=== PATIENT | female | born 1935 | race Caucasian/White ===

== ENCOUNTER 2022-05-29 11:22 | Inpatient (IN) | payer OTHER ==
[~2022-05-29] VITALS: Ht 165.1 cm; Wt 75.8 kg
[2022-05-29] MEDS ORDERED: SODIUM CHLORIDE 0.9% 1,000 ML IV ONE (12:00)
[2022-05-29] MEDS ORDERED: cefTRIAXone 1GM/50ML D5W 50 ML IV ONE (12:00)
[2022-05-29 12:50] LABS: Basophils # (auto) 0.1 10 ^3/uL (0-0.2); Eosinophils # (auto) 0 10 ^3/uL (0-0.8); Monocytes # (auto) 0.7 10 ^3/uL (0-1.3); Monocytes % (auto) 4.6 % (0.0-12.0)
[2022-05-29 12:54] LABS: Basophils % (auto) 0.5 % (0.0-2.0); Eosinophils % (auto) 0.2 % (0.0-7.0); Hematocrit 52.3 % (36.0-46.0); Hemoglobin 17.3 g/dL (12.2-16.2); Lymphocytes # (auto) 1.9 10 ^3/uL (0.4-5.4); Lymphocytes % (auto) 12.8 % (10.0-50.0); Neutrophils # (auto) 12.1 10 ^3/uL (1.6-8.6); Neutrophils % (auto) 81.9 % (37.0-80.0); Nucleated Red Blood Cells % 0.1 %; Red Blood Cells 6.16 10^6/uL (4.0-5.20); White Blood Cell 14.7 10^3/uL (4.4-10.8)
[2022-05-29 13:20] LABS: INR 1.02 (0.9-1.15); Partial Thromboplastin Time 26.3 sec (24.6-33.4)
[2022-05-29 13:31] LABS: Lactic Acid w/Reflex 2.3 mmol/L (0.4-2.0)
[2022-05-29 13:52] LABS: Albumin 3.3 g/dL (3.4-5.0); BUN/Creatinine Ratio 23.9; Calcium 9.5 mg/dL (8.5-10.1); Potassium 3.9 mmol/L (3.5-5.1); Total Protein 6.8 g/dL (6.4-8.2)
[2022-05-29] MEDS ORDERED: AZITHROMYCIN 500MG/ 250ML 250 ML IV ONE (16:00)
[2022-05-29] MEDS ORDERED: DOCUSATE SOD 100 MG CAP PO PRN (20:15)
[2022-05-29] MEDS ORDERED: MORPHINE SULFATE INJ 2 MG/ml SYRG IV PRN (20:15)
[2022-05-29] MEDS ORDERED: ACETAMINOPHEN 325 MG TAB PO PRN (20:15)
[2022-05-29] MEDS ORDERED: ONDANSETRON HCL 4 MG/2 ML VIAL IV PRN (20:15)
[2022-05-29] MEDS ORDERED: PANTOPRAZOLE 40 MG/10 ML VIAL INJ IV ONE (20:15)
[2022-05-29] MEDS ORDERED: NITROGLYCERIN 0.4 MG SL TAB SL PRN (20:15)
[2022-05-29 20:49] LABS: Urine Bacteria FEW /hpf (None Seen); Urine Blood Negative /uL (Negative); Urine Hyaline Cast FEW /lpf (0 - 2); Urine Mucus FEW (None Seen); Urine Specific Gravity 1.024 (1.001-1.035); Urine WBC 1 /hpf (0 - 5)
[2022-05-29 20:59] LABS: Cholesterol 238 mg/dL (< 200); HDL Cholesterol 66 mg/dL (40-59); LDL Cholesterol 174 mg/dL (< 100); Triglycerides 96 mg/dL (< 150)
[2022-05-29] MEDS ORDERED: DEXTROSE (50%) 50ML SYRG IV PRN (21:00)
[2022-05-29] MEDS: ACCU-CHEK COMFORT CURVE STRIP VI SCH (22:52)
[2022-05-29] MEDS: InsuLIN REG 1unit/0.01ml Soln (100units/ml) SC SCH (22:59)
[2022-05-29] MEDS: SODIUM CHLORIDE 0.9% 1,000 ML IV SCH (23:00)
[2022-05-30] MEDS: SODIUM CHLORIDE 0.9% 1,000 ML IV SCH (06:15)
[2022-05-30] MEDS: ACCU-CHEK COMFORT CURVE STRIP VI SCH ×4 (07:13→23:19)
[2022-05-30] MEDS: InsuLIN REG 1unit/0.01ml Soln (100units/ml) SC SCH ×4 (07:20→23:19)
[2022-05-30 08:21] LABS: Basophils # (auto) 0 10 ^3/uL (0-0.2); Basophils % (auto) 0.5 % (0.0-2.0); Eosinophils # (auto) 0 10 ^3/uL (0-0.8); Eosinophils % (auto) 0.4 % (0.0-7.0); Hematocrit 45.7 % (36.0-46.0); Hemoglobin 15.2 g/dL (12.2-16.2); Lymphocytes # (auto) 1.9 10 ^3/uL (0.4-5.4); Lymphocytes % (auto) 24.7 % (10.0-50.0); Mean Corpuscular Hemoglobin 28.6 pg (28.0-32.0); Mean Corpuscular Hgb Conc. 33.4 g/dL (32.0-36.0); Mean Corpuscular Volume 85.7 fL (80.0-100.0); Monocytes # (auto) 0.5 10 ^3/uL (0-1.3); Monocytes % (auto) 5.8 % (0.0-12.0); Neutrophils # (auto) 5.4 10 ^3/uL (1.6-8.6); Neutrophils % (auto) 68.6 % (37.0-80.0); Nucleated Red Blood Cells % 0.1 %; Red Blood Cells 5.33 10^6/uL (4.0-5.20); Red Cell Distribution Width 14.2 % (11.8-14.3); White Blood Cell 7.8 10^3/uL (4.4-10.8)
[2022-05-30 08:42] LABS: Albumin 2.9 g/dL (3.4-5.0); Calcium 8.9 mg/dL (8.5-10.1); Potassium 3.6 mmol/L (3.5-5.1)
[2022-05-30 08:47] LABS: BUN/Creatinine Ratio 27.3; Bilirubin, Total 0.6 mg/dL (0.2-1.0); Total Protein 6.3 g/dL (6.4-8.2)
[2022-05-30 09:00] VITALS: BP 136/63
[2022-05-30] MEDS ORDERED: PANTOPRAZOLE 40 MG/10 ML VIAL INJ IV SCH (10:00)
[2022-05-30] MEDS ORDERED: ENOXAPARIN SOD 40 MG/0.4 ML SYRINGE SC SCH (10:00)
[2022-05-30] MEDS: cefTRIAXone 1GM/50ML D5W 50 ML IV SCH (12:22)
[2022-05-30] MEDS: AZITHROMYCIN 500MG/ 250ML 250 ML IV SCH (12:22)
[2022-05-30] MEDS: ASPirin-EC 81 mg tab PO SCH (12:22)
[2022-05-30] MEDS: ENOXAPARIN SOD 40 MG/0.4 ML SYRINGE SC SCH (12:23)
[2022-05-30 14:00] VITALS: BP 125/62
[2022-05-30 18:00] VITALS: BP 125/64
[2022-05-30 18:11] LABS: Free T4 (Free Thyroxine) 1.24 ng/dL (0.89-1.76)
[2022-05-30 21:05] LABS: Folate (Folic Acid) 16.68 ng/mL (5.38-24)
[2022-05-30] MEDS: DONEPEZIL HYDROCHLORIDE 5 MG TAB PO SCH (23:03)
[2022-05-30] MEDS: ATORVASTATIN 20 MG TAB PO SCH (23:03)
[2022-05-31] MEDS ORDERED: LORazepam 2MG/ML-1ML VIAL IV ONE (04:30)
[2022-05-31] MEDS: InsuLIN REG 1unit/0.01ml Soln (100units/ml) SC SCH ×4 (07:37→21:36)
[2022-05-31] MEDS: ACCU-CHEK COMFORT CURVE STRIP VI SCH ×4 (07:40→21:36)
[2022-05-31] MEDS: cefTRIAXone 1GM/50ML D5W 50 ML IV SCH (09:00)
[2022-05-31] MEDS ORDERED: HALOPERIDOL LACTATE 5 MG/ML INJ VIAL IM PRN (09:15)
[2022-05-31] MEDS: ASPirin-EC 81 mg tab PO SCH (10:00)
[2022-05-31] MEDS: ENOXAPARIN SOD 40 MG/0.4 ML SYRINGE SC SCH (10:00)
[2022-05-31] MEDS: AZITHROMYCIN 500MG/ 250ML 250 ML IV SCH (10:00)
[2022-05-31 11:50] VITALS: BP 149/65
[2022-05-31 13:00] VITALS: BP 149/65
[2022-05-31 17:00] VITALS: BP 157/62
[2022-05-31] MEDS: DONEPEZIL HYDROCHLORIDE 5 MG TAB PO SCH (21:11)
[2022-05-31] MEDS: ATORVASTATIN 20 MG TAB PO SCH (21:12)
[2022-05-31 22:00] VITALS: BP_SYST 143; BP_SYST 149; BP_DIAS 66
[2022-06-01 05:49] VITALS: BP 143/61
[2022-06-01] MEDS: InsuLIN REG 1unit/0.01ml Soln (100units/ml) SC SCH ×3 (06:47→18:54)
[2022-06-01] MEDS: ACCU-CHEK COMFORT CURVE STRIP VI SCH ×3 (06:47→17:28)
[2022-06-01 09:00] VITALS: BP 142/69
[2022-06-01] MEDS: ASPirin-EC 81 mg tab PO SCH (10:13)
[2022-06-01] MEDS: ENOXAPARIN SOD 40 MG/0.4 ML SYRINGE SC SCH (10:14)
[2022-06-01] MEDS ORDERED: ATOR20TA50 PO (11:15)
[2022-06-01] MEDS ORDERED: DONE5TAB80 PO (11:15)
[2022-06-01 12:51] VITALS: BP 124/58
[2022-06-01 15:46] VITALS: BP 124/68
== END 2022-06-01 18:50 | disposition home or self-care (01) | DRG 948 ==
LOC: EDSEX 11:22 → EDBD 11:22 → ER 11:22 → TELE 20:13 → TELE-CENTR 05-31 09:18 → TELE-WESTW 06-01 06:29
PROVIDERS: ADMIT Nurse Practitioner Family; ATTEND Hospitalist
DX: R53.1 Weakness (principal); F02.82 Dementia in other diseases classified elsewhere, unspecified severity, with psychotic disturbance; F05 Delirium due to known physiological condition; R65.10 Systemic inflammatory response syndrome (SIRS) of non-infectious origin without acute organ dysfunction; E11.65 Type 2 diabetes mellitus with hyperglycemia; G30.9 Alzheimer's disease, unspecified; I11.0 Hypertensive heart disease with heart failure; I50.9 Heart failure, unspecified; E66.9 Obesity, unspecified; R29.6 Repeated falls; Z20.822 Contact with and (suspected) exposure to COVID-19; Z86.73 Personal history of transient ischemic attack (TIA), and cerebral infarction without residual deficits; Z79.899 Other long term (current) drug therapy; Z79.82 Long term (current) use of aspirin; Z68.27 Body mass index [BMI] 27.0-27.9, adult
CPT/HCPCS: 36415; 70450; 70551; 71045; 72192; 80053; 80061; 81001; 82607; 82746; 82962; 83036; 83605; 83880; 84439; 84443; 84484; 85025; 85379; 85610; 85730; 87040; 87426; 93005; 93306; 93886; 95819; 96365; 97163; C9113; G0378; J0696; J1815

== ENCOUNTER 2023-05-17 22:57 | Inpatient (IN) | payer OTHER ==
[~2023-05-17] VITALS: Ht 165.1 cm; Wt 75.5 kg
[~2023-05-17 22:57] MED LIST: ATOR20TA50 PO; DONE5TAB80 PO
[2023-05-18 00:15] LABS: Basophils # (auto) 0.1 10 ^3/uL (0-0.2); Basophils % (auto) 0.9 % (0.0-2.0); Eosinophils # (auto) 0.1 10 ^3/uL (0-0.8); Eosinophils % (auto) 0.8 % (0.0-7.0); Hematocrit 45.8 % (36.0-46.0); Hemoglobin 15.3 g/dL (12.2-16.2); Lymphocytes # (auto) 1.9 10 ^3/uL (0.4-5.4); Lymphocytes % (auto) 20.8 % (10.0-50.0); Mean Corpuscular Hemoglobin 28.5 pg (28.0-32.0); Mean Corpuscular Hgb Conc. 33.4 g/dL (32.0-36.0); Mean Corpuscular Volume 85.2 fL (80.0-100.0); Monocytes # (auto) 0.5 10 ^3/uL (0-1.3); Monocytes % (auto) 4.9 % (0.0-12.0); Neutrophils # (auto) 6.8 10 ^3/uL (1.6-8.6); Neutrophils % (auto) 72.6 % (37.0-80.0); Nucleated Red Blood Cells % 0.2 %; Red Blood Cells 5.38 10^6/uL (4.0-5.20); Red Cell Distribution Width 14.2 % (11.8-14.3); White Blood Cell 9.3 10^3/uL (4.4-10.8)
[2023-05-18 00:33] LABS: Alanine Aminotransferase 16 U/L (7-40); Alkaline Phosphatase 108 U/L (46-116); Anion Gap 8 (5-15); Aspartate Aminotransferase 12 U/L (13-40); BUN/Creatinine Ratio 19.3 (10.0-20.0); Bilirubin, Total 0.6 mg/dL (0.2-1.0); Blood Urea Nitrogen 11 mg/dL (9-23); Calcium 9.3 mg/dL (8.7-10.4); Carbon Dioxide 23 mmol/L (20-30); Chloride 105 mmol/L (98-107); Glucose 206 mg/dL (74-106); Potassium 3.8 mmol/L (3.5-5.1); Sodium 136 mmol/L (136-145); Total Protein 6.6 g/dL (5.7-8.2)
[2023-05-18 01:05] LABS: Urine Bacteria NONE SEEN /hpf (None Seen); Urine Blood Negative /uL (Negative); Urine Budding Yeast OCCASIONAL /hpf (None Seen); Urine Clarity Clear (Clear); Urine Color Colorless (Yellow); Urine Protein, UAD Negative (Negative); Urine Specific Gravity 1.013 (1.001-1.035); Urine Urobilinogen Normal (Negative); Urine WBC 13 /hpf (0 - 5)
[2023-05-18 01:16] LABS: Amphetamine Screen, Urine Neg (NEGATIVE); Barbiturate Scree,Urine Neg (NEGATIVE); Benzodiazephine Screen, Urine Neg (NEGATIVE); Cocaine Screen, Urine Neg (NEGATIVE); Opiate Scree,Urine Neg (NEGATIVE); Phencyclidine Screen, Urine Neg (NEGATIVE)
[2023-05-18 01:17] LABS: Cannabinoid Screen, Urine Neg (NEGATIVE)
[2023-05-18] MEDS ORDERED: SODIUM CHLORIDE 0.9% 1,000 ML IV ONE (03:15)
[2023-05-18] MEDS ORDERED: PIPERACILLIN-TAZOB 3.375GM 100 ML IV ONE (03:15)
[2023-05-18] MEDS ORDERED: NITROGLYCERIN 0.4 MG SL TAB SL PRN (06:30)
[2023-05-18] MEDS ORDERED: DOCUSATE SOD 100 MG CAP PO PRN (06:30)
[2023-05-18] MEDS ORDERED: MORPHINE SULFATE INJ 2 MG/ml SYRG IV PRN (06:30)
[2023-05-18] MEDS: SODIUM CHLORIDE 0.9% 1,000 ML IV SCH (09:25)
[2023-05-18 09:41] VITALS: PULSE 94; RESP 13; O2SAT 98
[2023-05-18] MEDS ORDERED: levoFLOXacin 500MG 100 ML IV SCH (10:00)
[2023-05-18] MEDS: ENOXAPARIN SOD 40 MG/0.4 ML SYRINGE SC SCH (10:07)
[2023-05-18] MEDS: ONDANSETRON HCL 4 MG/2 ML VIAL IV PRN ×2 (16:56→20:46)
[2023-05-18 20:00] VITALS: PULSE 112; PULSE 75; RESP 18; TEMP 97.7; O2SAT 95
[2023-05-18] MEDS: ACETAMINOPHEN 325 MG TAB PO PRN (20:46)
[2023-05-18 22:00] VITALS: BP 157/76; PULSE 111; RESP 19; TEMP 98.2; O2SAT 97
[2023-05-18] MEDS: HALOPERIDOL LACTATE 5 MG/ML INJ VIAL IM PRN (22:07)
[2023-05-19 02:00] VITALS: PULSE 112
[2023-05-19 05:00] VITALS: BP 137/95; PULSE 94; RESP 20; TEMP 97; O2SAT 95
[2023-05-19] MEDS: SODIUM CHLORIDE 0.9% 1,000 ML IV SCH ×3 (05:02→21:41)
[2023-05-19] MEDS: ONDANSETRON HCL 4 MG/2 ML VIAL IV PRN (05:02)
[2023-05-19] MEDS: HALOPERIDOL LACTATE 5 MG/ML INJ VIAL IM PRN (07:59)
[2023-05-19 08:00] VITALS: RESP 16
[2023-05-19] MEDS: ENOXAPARIN SOD 40 MG/0.4 ML SYRINGE SC SCH (10:00)
[2023-05-19 16:43] VITALS: BP 115/54; PULSE 92; RESP 19; TEMP 97.5; O2SAT 96
[2023-05-19] MEDS: PIPERACILLIN-TAZOB 3.375GM 100 ML IV SCH (18:33)
[2023-05-19 20:00] VITALS: RESP 16; O2SAT 95
[2023-05-20] MEDS: PIPERACILLIN-TAZOB 3.375GM 100 ML IV SCH ×3 (02:47→17:24)
[2023-05-20 07:30] VITALS: PULSE 91
[2023-05-20 07:37] LABS: Basophils # (auto) 0 10 ^3/uL (0-0.2); Basophils % (auto) 0.7 % (0.0-2.0); Chloride 106 mmol/L (98-107); Eosinophils # (auto) 0.1 10 ^3/uL (0-0.8); Eosinophils % (auto) 1.5 % (0.0-7.0); Hematocrit 44.2 % (36.0-46.0); Hemoglobin 14.9 g/dL (12.2-16.2); Lymphocytes # (auto) 2.3 10 ^3/uL (0.4-5.4); Lymphocytes % (auto) 34.2 % (10.0-50.0); Mean Corpuscular Hemoglobin 28.7 pg (28.0-32.0); Mean Corpuscular Hgb Conc. 33.6 g/dL (32.0-36.0); Mean Corpuscular Volume 85.2 fL (80.0-100.0); Monocytes # (auto) 0.4 10 ^3/uL (0-1.3); Monocytes % (auto) 6.2 % (0.0-12.0); Neutrophils # (auto) 3.9 10 ^3/uL (1.6-8.6); Neutrophils % (auto) 57.4 % (37.0-80.0); Nucleated Red Blood Cells % 0.1 %; Potassium 3.2 mmol/L (3.5-5.1); Red Blood Cells 5.18 10^6/uL (4.0-5.20); Sodium 137 mmol/L (136-145); White Blood Cell 6.7 10^3/uL (4.4-10.8)
[2023-05-20 07:38] LABS: Anion Gap 6 (5-15); Calcium 8.6 mg/dL (8.7-10.4); Carbon Dioxide 25 mmol/L (20-30)
[2023-05-20 07:43] LABS: BUN/Creatinine Ratio 19.4 (10.0-20.0); Blood Urea Nitrogen 13 mg/dL (9-23); Glucose 234 mg/dL (74-106)
[2023-05-20 08:16] VITALS: BP 110/47; PULSE 93; RESP 19; TEMP 98.2; O2SAT 93
[2023-05-20] MEDS: ENOXAPARIN SOD 40 MG/0.4 ML SYRINGE SC SCH (08:58)
[2023-05-20] MEDS: SODIUM CHLORIDE 0.9% 1,000 ML IV SCH (11:50)
[2023-05-20 12:05] VITALS: BP 124/66; PULSE 96; RESP 19; TEMP 97.6; O2SAT 97
[2023-05-20] MEDS ORDERED: POTASSIUM EFFERVESENT TAB 25 MEQ PO ONE (15:30)
[2023-05-20 15:46] VITALS: BP 127/67; PULSE 100; RESP 19; TEMP 97.9; O2SAT 95
[2023-05-20 20:00] VITALS: PULSE 88; RESP 17
[2023-05-20 22:00] VITALS: BP 119/76; PULSE 89; RESP 17; TEMP 98.1; O2SAT 96
[2023-05-20] MEDS ORDERED: LORazepam 2MG/ML-1ML VIAL IV PRN (23:30)
[2023-05-20 23:35] LABS: Triglycerides 101 mg/dL (< 150)
[2023-05-20 23:36] LABS: LDL Cholesterol 130 mg/dL (< 100)
[2023-05-20 23:37] LABS: HDL Cholesterol 49 mg/dL (40-59)
[2023-05-20 23:38] LABS: Cholesterol 196 mg/dL (< 200)
[2023-05-21] MEDS: SODIUM CHLORIDE 0.9% 1,000 ML IV SCH ×2 (02:01→14:30)
[2023-05-21] MEDS: PIPERACILLIN-TAZOB 3.375GM 100 ML IV SCH ×3 (02:01→18:00)
[2023-05-21 05:00] VITALS: BP 143/94; PULSE 80; RESP 18; TEMP 97.7; O2SAT 96
[2023-05-21 08:00] VITALS: BP 151/69; PULSE 81; PULSE 84; RESP 18; TEMP 98.1; O2SAT 94
[2023-05-21 08:41] LABS: Basophils # (auto) 0 10 ^3/uL (0-0.2); Basophils % (auto) 0.6 % (0.0-2.0); Eosinophils # (auto) 0.1 10 ^3/uL (0-0.8); Eosinophils % (auto) 1.8 % (0.0-7.0); Hematocrit 44.6 % (36.0-46.0); Hemoglobin 14.8 g/dL (12.2-16.2); Lymphocytes # (auto) 1.7 10 ^3/uL (0.4-5.4); Mean Corpuscular Hemoglobin 28.8 pg (28.0-32.0); Mean Corpuscular Hgb Conc. 33.2 g/dL (32.0-36.0); Mean Corpuscular Volume 86.8 fL (80.0-100.0); Monocytes # (auto) 0.4 10 ^3/uL (0-1.3); Monocytes % (auto) 5.3 % (0.0-12.0); Neutrophils # (auto) 5.6 10 ^3/uL (1.6-8.6); Neutrophils % (auto) 71.3 % (37.0-80.0); Nucleated Red Blood Cells % 0.2 %; Red Blood Cells 5.13 10^6/uL (4.0-5.20); Red Cell Distribution Width 14.1 % (11.8-14.3); White Blood Cell 7.9 10^3/uL (4.4-10.8)
[2023-05-21 08:54] LABS: Chloride 107 mmol/L (98-107); Potassium 3.6 mmol/L (3.5-5.1); Sodium 138 mmol/L (136-145)
[2023-05-21 08:56] LABS: Anion Gap 6 (5-15); Carbon Dioxide 25 mmol/L (20-30)
[2023-05-21 08:57] LABS: Calcium 8.5 mg/dL (8.7-10.4)
[2023-05-21 09:02] LABS: BUN/Creatinine Ratio 10.3 (10.0-20.0); Blood Urea Nitrogen 6 mg/dL (9-23); Glucose 259 mg/dL (74-106)
[2023-05-21] MEDS: ENOXAPARIN SOD 40 MG/0.4 ML SYRINGE SC SCH (09:10)
[2023-05-21] MEDS: ASPirin 81 mg TAB PO SCH (09:11)
[2023-05-21 13:00] VITALS: BP 147/66; PULSE 94; RESP 18; TEMP 98.3; O2SAT 97
[2023-05-21] MEDS: ACETAMINOPHEN 325 MG TAB PO PRN (14:05)
[2023-05-21 17:00] VITALS: BP 146/63; PULSE 79; RESP 18; TEMP 97.9; O2SAT 98
[2023-05-21 20:00] VITALS: PULSE 91; RESP 18
[2023-05-21] MEDS: ATORVASTATIN 20 MG TAB PO SCH (21:27)
[2023-05-21] MEDS: DONEPEZIL HYDROCHLORIDE 5 MG TAB PO SCH (21:27)
[2023-05-21 22:00] VITALS: BP 135/69; PULSE 93; RESP 18; TEMP 97.6; O2SAT 96
[2023-05-22] VITALS (7 sets, daily range): BP systolic 136–150; BP diastolic 70–77; PULSE 73–100; RESP 14–20; TEMP 97.4–98.3; O2SAT 94–96
[2023-05-22] MEDS: PIPERACILLIN-TAZOB 3.375GM 100 ML IV SCH ×3 (02:05→18:01)
[2023-05-22] MEDS: SODIUM CHLORIDE 0.9% 1,000 ML IV SCH ×2 (03:50→17:10)
[2023-05-22 06:05] LABS: Basophils # (auto) 0 10 ^3/uL (0-0.2); Basophils % (auto) 0.5 % (0.0-2.0); Eosinophils # (auto) 0.1 10 ^3/uL (0-0.8); Eosinophils % (auto) 1.6 % (0.0-7.0); Hematocrit 44.8 % (36.0-46.0); Lymphocytes # (auto) 1.8 10 ^3/uL (0.4-5.4); Lymphocytes % (auto) 21.6 % (10.0-50.0); Mean Corpuscular Hemoglobin 28.8 pg (28.0-32.0); Mean Corpuscular Hgb Conc. 33.5 g/dL (32.0-36.0); Monocytes # (auto) 0.5 10 ^3/uL (0-1.3); Monocytes % (auto) 6.4 % (0.0-12.0); Neutrophils % (auto) 69.9 % (37.0-80.0); Nucleated Red Blood Cells % 0.1 %; Red Blood Cells 5.21 10^6/uL (4.0-5.20); Red Cell Distribution Width 13.8 % (11.8-14.3); White Blood Cell 8.5 10^3/uL (4.4-10.8)
[2023-05-22 06:11] LABS: Anion Gap 7 (5-15); Carbon Dioxide 25 mmol/L (20-30); Chloride 106 mmol/L (98-107); Potassium 3.4 mmol/L (3.5-5.1); Sodium 138 mmol/L (136-145)
[2023-05-22 06:12] LABS: Calcium 8.8 mg/dL (8.7-10.4)
[2023-05-22 06:17] LABS: BUN/Creatinine Ratio 13.2 (10.0-20.0); Blood Urea Nitrogen 7 mg/dL (9-23); Glucose 202 mg/dL (74-106)
[2023-05-22] MEDS: ASPirin 81 mg TAB PO SCH (10:21)
[2023-05-22] MEDS: ENOXAPARIN SOD 40 MG/0.4 ML SYRINGE SC SCH (10:22)
[2023-05-22] MEDS: ACETAMINOPHEN 325 MG TAB PO PRN (15:50)
[2023-05-22] MEDS: DONEPEZIL HYDROCHLORIDE 5 MG TAB PO SCH (21:03)
[2023-05-22] MEDS: ATORVASTATIN 20 MG TAB PO SCH (21:03)
[2023-05-23] MEDS: PIPERACILLIN-TAZOB 3.375GM 100 ML IV SCH ×2 (02:00→11:20)
[2023-05-23 05:00] VITALS: BP_SYST 135; BP_SYST 155; BP_DIAS 62; BP_DIAS 65; PULSE 104; PULSE 80; RESP 16; RESP 18; TEMP 98; O2SAT 90; O2SAT 95
[2023-05-23] MEDS: SODIUM CHLORIDE 0.9% 1,000 ML IV SCH (06:30)
[2023-05-23 07:48] LABS: Anion Gap 4 (5-15); Carbon Dioxide 36 mmol/L (20-30)
[2023-05-23 07:49] LABS: Calcium 7.7 mg/dL (8.7-10.4)
[2023-05-23 07:50] LABS: Chloride 90 mmol/L (98-107); Sodium 130 mmol/L (136-145)
[2023-05-23 07:54] LABS: BUN/Creatinine Ratio 11.5 (10.0-20.0); Blood Urea Nitrogen 9 mg/dL (9-23); Glucose 147 mg/dL (74-106)
[2023-05-23 08:00] VITALS: PULSE 74
[2023-05-23 09:00] VITALS: BP 116/53; PULSE 87; RESP 18; TEMP 98.6; O2SAT 96
[2023-05-23 09:11] LABS: Basophils # (auto) 0 10 ^3/uL (0-0.2); Basophils % (auto) 0.4 % (0.0-2.0); Eosinophils # (auto) 0.1 10 ^3/uL (0-0.8); Eosinophils % (auto) 0.8 % (0.0-7.0); Hematocrit 42.6 % (36.0-46.0); Hemoglobin 14.2 g/dL (12.2-16.2); Lymphocytes # (auto) 1.5 10 ^3/uL (0.4-5.4); Lymphocytes % (auto) 19.6 % (10.0-50.0); Mean Corpuscular Hemoglobin 28.6 pg (28.0-32.0); Mean Corpuscular Hgb Conc. 33.3 g/dL (32.0-36.0); Monocytes # (auto) 0.4 10 ^3/uL (0-1.3); Monocytes % (auto) 5.1 % (0.0-12.0); Neutrophils # (auto) 5.9 10 ^3/uL (1.6-8.6); Neutrophils % (auto) 74.1 % (37.0-80.0); Nucleated Red Blood Cells % 0.1 %; Red Blood Cells 4.95 10^6/uL (4.0-5.20); Red Cell Distribution Width 14.1 % (11.8-14.3); White Blood Cell 7.9 10^3/uL (4.4-10.8)
[2023-05-23] MEDS: ENOXAPARIN SOD 40 MG/0.4 ML SYRINGE SC SCH (11:21)
[2023-05-23] MEDS: ASPirin 81 mg TAB PO SCH (11:21)
[2023-05-23] MEDS: ACETAMINOPHEN 325 MG TAB PO PRN (11:22)
[2023-05-23 13:00] VITALS: BP 115/55; PULSE 89; RESP 18; TEMP 98.1; O2SAT 96
[2023-05-23] MEDS ORDERED: POTASSIUM CHL 20 Meq TABLET PO ONE (15:00)
== END 2023-05-23 16:20 | DRG 871 ==
LOC: EDBD 22:57 → ER 22:57 → EDUNIT# 22:57 → TELE 05-18 06:28 → TELE-EAST 05-18 18:05 → TELE-WESTW 05-18 19:55
PROVIDERS: ADMIT Nurse Practitioner Family; ATTEND Nurse Practitioner Family
DX: A41.9 Sepsis, unspecified organism (principal); G93.41 Metabolic encephalopathy; N30.01 Acute cystitis with hematuria; E11.9 Type 2 diabetes mellitus without complications; F02.80 Dementia in other diseases classified elsewhere, unspecified severity, without behavioral disturbance, psychotic disturbance, mood disturbance, and anxiety; G30.9 Alzheimer's disease, unspecified; I11.0 Hypertensive heart disease with heart failure; F17.200 Nicotine dependence, unspecified, uncomplicated; I50.9 Heart failure, unspecified; Z79.82 Long term (current) use of aspirin; Z79.899 Other long term (current) drug therapy; Z86.73 Personal history of transient ischemic attack (TIA), and cerebral infarction without residual deficits
CPT/HCPCS: 36415; 70450; 70551; 71045; 73030; 80048; 80053; 80061; 80307; 81001; 82607; 82962; 83605; 83880; 84484; 85025; 87086; 87088; 87186; 93005; 93306; 93886; 97110; 97116; 97163; 97530; G0378; J1956; J2405; J2543